=== PATIENT | female | born 1930 ===

== ENCOUNTER 2016-10-02 16:09 | Inpatient (IN) | payer MEDICARE, MEDICAID ==
[2016-10-02] MEDS ORDERED: Sodium Chloride 0.9% 500 ML IV STA (16:51)
--- NOTE | 2016-10-02 16:58 | ED PDOC ---
HPI: Headache Time Seen by Provider: 10/02/16 16:42 Chief Complaint (Nursing): Headache Chief Complaint (Provider): Headache History Per: Patient History/Exam Limitations: no limitations Onset/Duration Of Symptoms: Days Current Symptoms Are (Timing): Still Present Additional Complaint(s): Pt. has headache diffuse since yesterday. Has had similar multiple times in the past. Did not take anything for it. No numbness, tingles, weakness. Has dizziness like room spinning. No nausea, vomit, abd pain, chest pain, dyspnea. Past Medical History Reviewed: Nursing Documentation, Vital Signs Vital Signs: Last Vital Signs Temp 98.2 F 10/02/16 16:13 Pulse 80 10/02/16 16:13 Resp 16 10/02/16 16:13 BP 193/83 H 10/02/16 16:13 Pulse Ox 100 10/02/16 16:13 - Medical History PMH: Alzheimer's Disease, Bronchitis, Dementia, HTN, Hypercholesterolemia, Hypothyroidism Denies: CVA, HIV, Chronic Kidney Disease - Surgical History Surgical History: Appendectomy, Cholecystectomy - Family History Family History: States: Unknown Family Hx - Living Arrangements Living Arrangements: With Family - Social History Current smoker - smoking cessation education provided: No Alcohol: None Drugs: Denies - Home Medications Home Medications: Ambulatory Orders Medication Instructions Recorded Calcium Carbonate/Vitamin D3 1 tab PO BID 10/02/16 [Oysco 500-Vit D3 200 Tablet] Digoxin [Lanoxin] 0.125 mg PO DAILY 10/02/16 Donepezil HCl [Aricept] 5 mg PO DAILY 10/02/16 Levothyroxine [Synthroid] 25 mcg PO DAILY 10/02/16 Lisinopril [Zestril] 10 mg PO BID 10/02/16 Meclizine [Antivert] 12.5 mg PO DAILY PRN 10/02/16 Multivitamin [Multi-Delyn Liquid] 5 ml PO DAILY 10/02/16 Pantoprazole Sodium [Protonix] 20 mg PO DAILY 10/02/16 - Allergies Allergies/Adverse Reactions: Allergies Allergy/AdvReac Type Severity Reaction Status Date / Time No Known Allergies Allergy Verified 04/28/16 09:31 Review of Systems ROS Statement: Except As Marked, All Systems Reviewed And Found Negative Neurological: Positive for: Headache, Dizziness Physical Exam - Reviewed Nursing Documentation Reviewed: Yes Vital Signs Reviewed: Yes - Physical Exam Appears: Positive for: Non-toxic, No Acute Distress Head Exam: Positive for: ATRAUMATIC, NORMAL INSPECTION, NORMOCEPHALIC Skin: Positive for: Normal Color, Warm, DRY Eye Exam: Positive for: EOMI, Normal appearance, PERRL ENT: Positive for: Normal ENT Inspection Neck: Positive for: Normal, Painless ROM Cardiovascular/Chest: Positive for: Regular Rate, Rhythm Respiratory: Positive for: CNT, Normal Breath Sounds Gastrointestinal/Abdominal: Positive for: Normal Exam, Bowel Sounds, Soft. Negative for: Tenderness Back: Positive for: Normal Inspection. Negative for: L CVA Tenderness, R CVA Tenderness Extremity: Positive for: Normal ROM. Negative for: Tenderness, Pedal Edema Neurologic/Psych: Positive for: Alert, affirmative action specialist II-XII, Oriented. Negative for: Motor/Sensory Deficits - Laboratory Results Result Diagrams: 10/02/16 17:59 10/02/16 17:59 Interpretation Of Abn Labs: 94 chloride, na 128 - ECG ECG: Positive for: Interpreted By Me, Viewed By Me ECG Rhythm: Positive for: Normal QRS, Normal ST Segment, Sinus Rhythm O2 Sat by Pulse Oximetry: 100 Pulse Ox Interpretation: Normal - CT Scan/US head Other Rad Studies (CT/US): Read By Radiologist Other Rad Interpretation: no acute - Progress ED Course And Treament: 1859: Stable. Alert. Still have dizziness. Spoke with Dr. Lamar. Will admit tele obs and give further orders when pt. reaches floor. Disposition - Clinical Impression Clinical Impression: Dizziness, Dehydration - Patient ED Disposition Is Patient to be Admitted: Yes Counseled Patient/Family Regarding: Studies Performed, Diagnosis - Disposition Disposition Time: 19:03 Condition: FAIR - Pt Status Changed To: Hospital Disposition Of: Observation - POA Present On Arrival: None
--- NOTE | 2016-10-02 17:28 | CT ---
PROCEDURE: CT HEAD WITHOUT CONTRAST. HISTORY: headache COMPARISON: None available. TECHNIQUE: Axial computed tomography images were obtained through the head/brain without intravenous contrast. Radiation dose: Total exam DLP = 800.12 mGy-cm. This CT exam was performed using one or more of the following dose reduction techniques: Automated exposure control, adjustment of the mA and/or kV according to patient size, and/or use of iterative reconstruction technique. FINDINGS: HEMORRHAGE: No intracranial hemorrhage. BRAIN: Mild to moderate diffuse age-appropriate atrophy. Moderate periventricular white matter lucency with patchy deep and subcortical white matter lucency, consistent with age related microvascular ischemic change. This is unchanged in extent when compared to the prior CT examination. No evidence of acute infarct. VENTRICLES: Unremarkable. No hydrocephalus. CALVARIUM: Unremarkable. PARANASAL SINUSES: Unremarkable as visualized. No significant inflammatory changes. MASTOID AIR CELLS: Unremarkable as visualized. No inflammatory changes. OTHER FINDINGS: 7 mm rounded soft tissue density, likely associated with the left superior palpebrum. This is essentially unchanged from examination of 10/01/2014. IMPRESSION: No intracranial mass, hemorrhage or evidence of acute infarct. Age related atrophy and chronic white matter ischemic change.
[2016-10-02 18:16] LABS: BASO % 0.4 % (0.0-2.0); EOS # 0.1 K/uL (0.0-0.7); HEMOGLOBIN 13.3 g/dL (12.0-16.0); LYMPH # 0.8 K/uL (1.0-4.3); LYMPH % 14.4 % (20.0-40.0); MEAN CORPUSCULAR HEMOGLOBIN 29.9 pg (27.0-31.0); MEAN CORPUSCULAR HGB CONC 32.9 g/dL (33.0-37.0); MEAN PLATELET VOLUME 7.9 fl (7.2-11.7); MONO # 0.4 K/uL (0.0-0.8); MONO % 6.8 % (0.0-10.0); NEUT # 4.1 K/uL (1.8-7.0); NEUT % 77.4 % (50.0-75.0); NRBC % 0.1 % (0.0-0.0); RBC 4.44 Mil/uL (3.80-5.20); RED CELL DISTRIBUTION WIDTH 12.9 % (11.5-14.5); WHITE BLOOD COUNT 5.3 K/uL (4.8-10.8)
[2016-10-02 18:29] LABS: PARTIAL THROMBOPLASTIN TIME 31.9 Seconds (25.6-37.1); PROTHROMBIN TIME 11.3 Seconds (9.8-13.1)
[2016-10-02 18:38] LABS: BLOOD UREA NITROGEN 11 mg/dl (7-17); CALCIUM 9.2 mg/dL (8.4-10.2); GFR AFRICAN-AMERICAN > 60; GFR NON-AFRICAN AMERICAN > 60
[2016-10-02 18:39] LABS: ALB/GLOB RATIO 1.3 (1.0-2.1); ALBUMIN 3.9 g/dL (3.5-5.0); ALT/SGPT 26 U/L (9-52); AST/SGOT 32 U/L (14-36)
[2016-10-02] MEDS: Sodium Chloride 0.9% 1,000 ML IV SCH (22:04)
[2016-10-03] MEDS: Levothyroxine 25 MCG TAB PO SCH (06:16)
[2016-10-03 07:36] LABS: HEMOGLOBIN 12.3 g/dL (12.0-16.0); MEAN CORPUSCULAR HEMOGLOBIN 30.2 pg (27.0-31.0); MEAN CORPUSCULAR HGB CONC 32.8 g/dL (33.0-37.0); RBC 4.09 Mil/uL (3.80-5.20); RED CELL DISTRIBUTION WIDTH 13.1 % (11.5-14.5); WHITE BLOOD COUNT 2.9 K/uL (4.8-10.8)
[2016-10-03] MEDS: Digoxin 125 mcg (0.125 mg) Tab PO SCH (09:00)
[2016-10-03] MEDS: Sodium Chloride 0.9% 1,000 ML IV SCH (09:01)
[2016-10-03] MEDS: Pantoprazole 20 mg EC Tab PO SCH (09:01)
[2016-10-03 09:07] LABS: ALB/GLOB RATIO 1.5 (1.0-2.1); ALBUMIN 3.5 g/dL (3.5-5.0); ALT/SGPT 175 U/L (9-52); AST/SGOT 225 U/L (14-36); BLOOD UREA NITROGEN 10 mg/dl (7-17); CALCIUM 8.6 mg/dL (8.4-10.2); GFR AFRICAN-AMERICAN > 60; GFR NON-AFRICAN AMERICAN > 60
[2016-10-03 09:37] LABS: T3 0.902 nmol/L (1.49-2.60)
--- NOTE | 2016-10-03 09:39 | RAD ---
HISTORY: headache, dizziness COMPARISON: 04/28/2016 FINDINGS: LUNGS: No active pulmonary disease. PLEURA: No significant pleural effusion identified, no pneumothorax apparent. CARDIOVASCULAR: Normal. OSSEOUS STRUCTURES: No significant abnormalities. VISUALIZED UPPER ABDOMEN: Normal. OTHER FINDINGS: None. IMPRESSION: No active disease.
--- NOTE | 2016-10-03 13:02 | CARD ---
APPROVED REPORT EKG Measurement Heart [id number] MD [id number] <Conclusion> Normal sinus rhythm Left axis deviation Possible Anterior infarct, age undetermined Abnormal ECG
--- NOTE | 2016-10-03 14:58 | CARD ---
APPROVED REPORT EXAM: Two-dimensional and M-mode echocardiogram with Doppler and color Doppler. Other Information Quality : GoodRhythm : NSR INDICATION Dizziness and Vertigo Hypertension/HCVD 2D DIMENSIONS IVSd1.17 (0.7-1.1cm)LVDd3.89 (3.9-5.9cm) LVOT Diameter2.08 (1.8-2.4cm)PWd0.99 (0.7-1.1cm) IVSs1.34 (0.8-1.2cm)LVDs2.50 (2.5-4.0cm) FS (%) 35.7 %PWs1.25 (0.8-1.2cm) LVEF (%)55.0 (>50%) M-Mode DIMENSIONS Left Atrium (MM)3.89 (2.5-4.0cm)IVSd0.69 (0.7-1.1cm) Aortic Root3.25 (2.2-3.7cm)LVDd5.02 (4.0-5.6cm) Aortic Cusp Exc.1.79 (1.5-2.0cm)PWd0.86 (0.7-1.1cm) IVSs0.98 cmFS (%) 35 % LVDs3.25 (2.0-3.8cm)PWs1.51 cm Mitral Valve MV E Ubqcyjkd76.3cm/sMV DECEL [id number] A Podejukj77.1cm/s MV ZRS76lnR/A ratio0.7MVA (PHT)2.32cm2 TDI Lateral E' Peak V6.94cm/sMedial E' Peak V4.60cm/sE/Lateral E'8.3 E/Medial E'12.5 Pulmonary Valve PV Peak Piocfvqi49.3cm/s Tricuspid Valve TR Peak Vlrddiic327wz/sRAP SSKCNTVG23bcBrWA Peak Gr.17mmHg [id number] LEFT VENTRICLE The left ventricle is normal size. There is borderline concentric left ventricular hypertrophy. The left ventricular function is normal. The left ventricular ejection fraction is within the normal range. There is normal LV segmental wall motion. Transmitral Doppler flow pattern is Grade I-abnormal relaxation pattern. RIGHT VENTRICLE The right ventricle is normal size. There is normal right ventricular wall thickness. The right ventricular systolic function is normal. ATRIA The left atrium size is normal. The right atrium size is normal. AORTIC VALVE The aortic valve is mildly thickened. There is trace aortic regurgitation. There is no aortic valvular stenosis. MITRAL VALVE The mitral valve is mildly thickened. There is no mitral valve stenosis. There is no mitral valve regurgitation noted. TRICUSPID VALVE The tricuspid valve is normal in structure There is trace tricuspid regurgitation. PULMONIC VALVE The pulmonary valve is normal in structure and function. There is no pulmonic valvular regurgitation. GREAT VESSELS The aortic root is normal in size. The IVC was not visualized. PERICARDIAL EFFUSION The pericardium appears normal. <Conclusion> The left ventricle is normal size. There is borderline concentric left ventricular hypertrophy. The left ventricular function is normal. The left ventricular ejection fraction is within the normal range. There is normal LV segmental wall motion. Transmitral Doppler flow pattern is Grade I-abnormal relaxation pattern.
--- NOTE | 2016-10-03 15:23 | CP.PCM.HP ---
History of Present Illness - History of Present Illness History of Present Illness: An 86 year old female was admitted to a telemetry unit on 10/02/16. She has headache diffuse since 10/01/16. Has had similar multiple times in the past. Did not take anything for it. No numbness, tingles, weakness. She has dizziness like room spinning. There was no nausea, vomit, abd pain, chest pain, or dyspnea. She uses a cane normally because of knee joint arthritic conditions and takes medicines for hypertension and dementia. She has mild shortness of breath on exertion. She lives alone in an apartment. At the ER CAT scan of head was normal, but she was found to have hyponatremia. She was admitted for evaluation and iv hydration. Present on Admission - Present on Admission Any Indicators Present on Admission: No History of DVT/PE: No History of Uncontrolled Diabetes: No Urinary Catheter: No Decubitus Ulcer Present: No Review of Systems - Review of Systems Systems not reviewed;Unavailable: Dementia - Constitutional Constitutional: As Per HPI, Fatigue - Cardiovascular Cardiovascular: Dyspnea on Exertion. absent: Chest Pain, Rapid Heart Rate - Respiratory Respiratory: Dyspnea on Exertion. absent: Cough, Dyspnea - Gastrointestinal Gastrointestinal: absent: Melena, Nausea, Vomiting - Neurological Neurological: Dizziness, Headaches. absent: Abnormal Gait, Abnormal Speech, Convulsions Past Patient History - Past Medical History & Family History Past Medical History?: Yes - Past Social History Smoking Status: Never Smoked - CARDIAC Hx Cardiac Disorders: Yes Hx Hypercholesterolemia: Yes Hx Hypertension: Yes - PULMONARY Hx Respiratory Disorders: Yes Hx Bronchitis: Yes - NEUROLOGICAL Hx Neurological Disorder: Yes Hx Alzheimer's Disease: Yes Hx Dementia: Yes - HEENT Hx HEENT Problems: Yes Hx Cataracts: Yes - RENAL Hx Chronic Kidney Disease: No - ENDOCRINE/METABOLIC Hx Endocrine Disorders: Yes Hx Hypothyroidism: Yes - HEMATOLOGICAL/ONCOLOGICAL Hx Blood Disorders: No Hx AIDS: No Hx Human Immunodeficiency Virus (HIV): No - INTEGUMENTARY Hx Dermatological Problems: No - MUSCULOSKELETAL/RHEUMATOLOGICAL Hx Musculoskeletal Disorders: Yes Hx Falls: No Hx Unsteady Gait: Yes - GASTROINTESTINAL Hx Gastrointestinal Disorders: Yes Hx Gastroesophageal Reflux: Yes - GENITOURINARY/GYNECOLOGICAL Hx Genitourinary Disorders: Yes Hx Incontinence: Yes - PSYCHIATRIC Hx Psychophysiologic Disorder: No Hx Substance Use: No - SURGICAL HISTORY Hx Surgeries: Yes Hx Appendectomy: Yes Hx Cholecystectomy: Yes - ANESTHESIA Hx Anesthesia: Yes Hx Anesthesia Reactions: No Hx Malignant Hyperthermia: No Meds Allergies/Adverse Reactions: Allergies Allergy/AdvReac Type Severity Reaction Status Date / Time No Known Allergies Allergy Verified 04/28/16 09:31 Physical Exam - Constitutional Appears: Non-toxic - Head Exam Head Exam: NORMAL INSPECTION, NORMOCEPHALIC - Neck Exam Neck exam: Positive for: Full Rom, Normal Inspection - Respiratory Exam Respiratory Exam: Clear to Auscultation Bilateral, NORMAL BREATHING PATTERN - Cardiovascular Exam Cardiovascular Exam: REGULAR RHYTHM, +S1, +S2. absent: Systolic Murmur - GI/Abdominal Exam GI & Abdominal Exam: Normal Bowel Sounds, Soft. absent: Tenderness - Extremities Exam Extremities exam: Positive for: normal inspection. Negative for: pedal edema - Back Exam Back exam: NORMAL INSPECTION Results - Vital Signs Recent Vital Signs: Last Vital Signs Temp 98.3 F 10/03/16 12:20 Pulse 55 L 10/03/16 12:20 Resp 18 10/03/16 12:20 BP 152/55 H 10/03/16 12:20 Pulse Ox 96 10/03/16 12:20 - Labs Result Diagrams: 10/03/16 07:00 10/03/16 07:00 Labs: Laboratory Results - last 24 hr 10/03/16 10/03/16 10/03/16 02:00 07:00 07:00 WBC RBC Hgb Hct MCV MCH MCHC RDW Plt Count Sodium 129 L Potassium 4.5 Chloride 99 Carbon Dioxide 22 Anion Gap 13 BUN 10 Creatinine 0.7 Est GFR ( Amer) > 60 Est GFR (Non-Af Amer) > 60 Random Glucose 84 Calcium 8.6 Total Bilirubin 0.8 AST 225 H D ALT 175 H D Alkaline Phosphatase 92 Troponin I 0.0320 Total Protein 5.9 L Albumin 3.5 Globulin 2.4 Albumin/Globulin Ratio 1.5 Vitamin B12 Total T3 0.902 L TSH 3rd Generation 2.73 Digoxin < 0.4 L 10/03/16 10/03/16 10/03/16 07:00 10:40 12:34 WBC 2.9 L RBC 4.09 Hgb 12.3 Hct 37.7 MCV 92.0 MCH 30.2 MCHC 32.8 L RDW 13.1 Plt Count 122 L D Sodium Potassium Chloride Carbon Dioxide Anion Gap BUN Creatinine Est GFR ( Amer) Est GFR (Non-Af Amer) Random Glucose Calcium Total Bilirubin AST ALT Alkaline Phosphatase Troponin I 0.0260 Total Protein Albumin Globulin Albumin/Globulin Ratio Vitamin B12 638 Total T3 TSH 3rd Generation Digoxin Assessment & Plan - Assessment and Plan (Free Text) Assessment: An 88 year old female with history of hypertension, thyroid disorder, dementia and chronic dizziness came with headache and dizziness. CAT scan of head was negative at ER. hyponatremia, Na was 128. Plan: continue iv hydration antivert prn for dizziness work up for carotid doppler and echocardiogram PT evaluation social director eval for home environment - Date & Time Date: 10/02/16 Time: 08:00
--- NOTE | 2016-10-03 15:33 | CP.PCM.PN ---
Subjective - Date & Time of Evaluation Date of Evaluation: 10/03/16 Time of Evaluation: 15:31 - Subjective Subjective: less dizziness less headache no nausea no vomiting Objective - Vital Signs/Intake and Output Vital Signs (last 24 hours): Temp Pulse Resp BP Pulse Ox 98.3 F 55 L 18 152/55 H 96 10/03/16 12:20 10/03/16 12:20 10/03/16 12:20 10/03/16 12:20 10/03/16 12:20 Intake and Output: 10/03/16 10/03/16 06:59 18:59 Intake Total 560 Balance 560 - Medications Medications: Current Medications Acetaminophen (Tylenol 325mg Tab) 650 mg PO Q6 PRN PRN Reason: Headache Digoxin (Lanoxin) 0.125 mg PO DAILY [facility] Last Admin: 10/03/16 09:00 Dose: 0.125 mg Sodium Chloride (Sodium Chloride 0.9%) 1,000 mls @ 80 mls/hr IV .[id number] [facility] Stop: 10/03/16 19:45 Last Admin: 10/03/16 09:01 Dose: 80 mls/hr Levothyroxine Sodium (Synthroid) 25 mcg PO DAILY@0630 [facility] Last Admin: 10/03/16 06:16 Dose: 25 mcg Lisinopril (Zestril) 10 mg PO BID [facility] Last Admin: 10/03/16 09:02 Dose: 10 mg Meclizine HCl (Antivert) 25 mg PO Q12H [facility] Last Admin: 10/03/16 09:00 Dose: 25 mg Pantoprazole Sodium (Protonix Ec Tab) 20 mg PO DAILY [facility] Last Admin: 10/03/16 09:01 Dose: 20 mg - Labs Labs: 10/03/16 07:00 10/03/16 07:00 PT 11.3 Seconds (9.8-13.1) 10/02/16 18:00 INR 1.0 (0.9-1.2) 10/02/16 18:00 APTT 31.9 Seconds (25.6-37.1) 10/02/16 18:00 - Constitutional Appears: Non-toxic - Head Exam Head Exam: NORMAL INSPECTION - Respiratory Exam Respiratory Exam: Clear to Ausculation Bilateral - Cardiovascular Exam Cardiovascular Exam: REGULAR RHYTHM - GI/Abdominal Exam GI & Abdominal Exam: Soft, Normal Bowel Sounds. absent: Tenderness Assessment and Plan - Assessment and Plan (Free Text) Assessment: hyponatremia dementia hypertension dizziness Plan: BP control PT evaluation carotid doppler repeat sodium in AM continue iv fluid DVT prophylaxis
--- NOTE | 2016-10-03 16:17 | US ---
PROCEDURE: Bilateral duplex Doppler carotid arterial ultrasound HISTORY: dizziness COMPARISON: Not available TECHNIQUE: Examination of the right and left carotid artery was performed utilizing a linear array color Doppler transducer FINDINGS: RIGHT CAROTID ARTERY: Intimal thickening in the common carotid artery. Minimal atheromatous plaque in the carotid bulb. Peak systolic velocities: CCA: 85.3 cm/sec ICA: 148.2 cm/sec ICA/CCA peak systolic velocity ratio: 1.7 Antegrade flow in the vertebral artery. LEFT CAROTID ARTERY: Intimal thickening in the common carotid artery. Minimal atheromatous plaque in the carotid bulb. Peak systolic velocities: CCA: 73.6 cm/sec ICA: 96.9 cm/sec ICA/CCA peak systolic velocity ratio: 1.3 Antegrade flow in the vertebral artery IMPRESSION: Less than 50 percent stenosis of the internal carotid artery bilaterally by hemodynamic criteria. Please note that there is elevated peak systolic velocity in the distal right ICA but the ICA/ CCA ratio is within normal limits. Antegrade flow in both vertebral arteries.
[2016-10-04] MEDS ORDERED: Sodium Chloride 0.9% 1,000 ML IV SCH ×2 (02:00→07:44)
[2016-10-04] MEDS: Levothyroxine 25 MCG TAB PO SCH (05:37)
[2016-10-04 06:54] LABS: HEMOGLOBIN 12.3 g/dL (12.0-16.0); MEAN CELL VOLUME 91.9 fl (81.0-99.0); MEAN CORPUSCULAR HEMOGLOBIN 30.3 pg (27.0-31.0); RBC 4.06 Mil/uL (3.80-5.20); RED CELL DISTRIBUTION WIDTH 13.1 % (11.5-14.5); WHITE BLOOD COUNT 3.8 K/uL (4.8-10.8)
--- NOTE | 2016-10-04 07:10 | CP.PCM.PN ---
Subjective - Date & Time of Evaluation Date of Evaluation: 10/04/16 Time of Evaluation: 07:08 - Subjective Subjective: feels fine no dizziness occasional shortness of breath Objective - Vital Signs/Intake and Output Vital Signs (last 24 hours): Temp Pulse Resp BP Pulse Ox 98.4 F 62 18 155/72 H 96 10/04/16 04:37 10/04/16 04:37 10/04/16 04:37 10/04/16 04:37 10/04/16 04:37 - Medications Medications: Current Medications Acetaminophen (Tylenol 325mg Tab) 650 mg PO Q6 PRN PRN Reason: Headache Digoxin (Lanoxin) 0.125 mg PO DAILY [facility] Last Admin: 10/03/16 09:00 Dose: 0.125 mg Sodium Chloride (Sodium Chloride 0.9%) 1,000 mls @ 80 mls/hr IV .[id number] [facility] Stop: 10/05/16 01:59 Last Admin: 10/04/16 02:00 Dose: 80 mls/hr Levothyroxine Sodium (Synthroid) 25 mcg PO DAILY@0630 [facility] Last Admin: 10/04/16 05:37 Dose: Not Given Lisinopril (Zestril) 10 mg PO BID [facility] Last Admin: 10/03/16 17:14 Dose: 10 mg Meclizine HCl (Antivert) 25 mg PO Q12H [facility] Last Admin: 10/03/16 21:57 Dose: 25 mg Pantoprazole Sodium (Protonix Ec Tab) 20 mg PO DAILY [facility] Last Admin: 10/03/16 09:01 Dose: 20 mg - Labs Labs: 10/03/16 07:00 10/03/16 07:00 PT 11.3 Seconds (9.8-13.1) 10/02/16 18:00 INR 1.0 (0.9-1.2) 10/02/16 18:00 APTT 31.9 Seconds (25.6-37.1) 10/02/16 18:00 - Constitutional Appears: Non-toxic - Neck Exam Neck Exam: Normal Inspection - Respiratory Exam Respiratory Exam: Rales (on anterior left upper lung field), NORMAL BREATHING PATTERN - Cardiovascular Exam Cardiovascular Exam: REGULAR RHYTHM. absent: Murmur - GI/Abdominal Exam GI & Abdominal Exam: Soft, Normal Bowel Sounds Assessment and Plan - Assessment and Plan (Free Text) Assessment: an 86 year old female who had dementia, hypertension came for dizziness and headaches hyponatremia probable dehydration carotid doppler < 50% stenosis of ICA Plan: work up for dizziness, echo check labs this morning for follow up sodium
[2016-10-04 07:20] LABS: ALB/GLOB RATIO 1.5 (1.0-2.1); ALBUMIN 3.4 g/dL (3.5-5.0); ALT/SGPT 116 U/L (9-52); AST/SGOT 82 U/L (14-36); BLOOD UREA NITROGEN 12 mg/dl (7-17); CALCIUM 8.8 mg/dL (8.4-10.2); GFR AFRICAN-AMERICAN > 60; GFR NON-AFRICAN AMERICAN > 60
[2016-10-04] MEDS: Digoxin 125 mcg (0.125 mg) Tab PO SCH (09:27)
[2016-10-04] MEDS: Pantoprazole 20 mg EC Tab PO SCH (09:29)
--- NOTE | 2016-10-04 10:26 | US ---
HISTORY: elevated lft COMPARISON: CT abdomen and pelvis performed 02/05/15 TECHNIQUE: Sonographic evaluation of the abdomen. FINDINGS: LIVER: Measures 14.6 cm in sagittal dimension. Heterogeneous echogenic echotexture Echogenic liver may be seen in setting of hepatic parenchymal disease or fatty infiltration. No focal hepatic mass identified. The main portal vein appears patent with normal directional flow. No intrahepatic bile duct dilatation. GALLBLADDER: Cholecystectomy. COMMON BILE DUCT: Measures 10 mm. PANCREAS: Not well visualized. RIGHT KIDNEY: Measures 9.2 x 4.3 x 3.4cm. No obstructing calculus or hydronephrosis identified. Too small to definitively characterize 0.5 x 0.5 x 0.3 cm midpole anechoic focus without vascularity, likely cyst. LEFT KIDNEY: Measures 9.6 x 4.3 x 3.8cm. No obstructing calculus or hydronephrosis identified. SPLEEN: Measures approximately 7.7 cm. AORTA: Limited views appear unremarkable. IVC: Limited views appear unremarkable. OTHER FINDINGS: None. IMPRESSION: Heterogeneous echogenic echotexture Echogenic liver may be seen in setting of hepatic parenchymal disease or fatty infiltration. Dilated common bile duct in the setting of cholecystectomy. 0.5 cm probable right renal cyst.
--- NOTE | 2016-10-04 15:49 | CP.PCM.CON ---
History of Present Illness - History of Present Illness History of Present Illness: Mrs. Mcclain is an 86-year-old woman with a past medical history of dementia, CHF, HTN, vertigo and hypthyroidism who states that she had a headache that started on the top of the head and radiated to the right side and was constant and pressure like. She does not currently have a headache. She also complains of occasional sensation of spinning. She says that she feels that the room spins and she feels dizzy. She does not currently have this sensation, but she gets it sometimes when she sits up, or when she stands up. When she initially presented to the ED, she was hyponatremic and was admitted for management. Neurology was consulted for the dizziness. Review of Systems - Review of Systems All systems: reviewed and no additional remarkable complaints except Past Patient History - Past Medical History & Family History Past Medical History?: Yes - Past Social History Smoking Status: Never Smoked - CARDIAC Hx Cardiac Disorders: Yes Hx Hypercholesterolemia: Yes Hx Hypertension: Yes - PULMONARY Hx Respiratory Disorders: Yes Hx Bronchitis: Yes - NEUROLOGICAL Hx Neurological Disorder: Yes Hx Alzheimer's Disease: Yes Hx Dementia: Yes - HEENT Hx HEENT Problems: Yes Hx Cataracts: Yes - RENAL Hx Chronic Kidney Disease: No - ENDOCRINE/METABOLIC Hx Endocrine Disorders: Yes Hx Hypothyroidism: Yes - HEMATOLOGICAL/ONCOLOGICAL Hx Blood Disorders: No Hx AIDS: No Hx Human Immunodeficiency Virus (HIV): No - INTEGUMENTARY Hx Dermatological Problems: No - MUSCULOSKELETAL/RHEUMATOLOGICAL Hx Musculoskeletal Disorders: Yes Hx Falls: No Hx Unsteady Gait: Yes - GASTROINTESTINAL Hx Gastrointestinal Disorders: Yes Hx Gastroesophageal Reflux: Yes - GENITOURINARY/GYNECOLOGICAL Hx Genitourinary Disorders: Yes Hx Incontinence: Yes - PSYCHIATRIC Hx Psychophysiologic Disorder: No Hx Substance Use: No - SURGICAL HISTORY Hx Surgeries: Yes Hx Appendectomy: Yes Hx Cholecystectomy: Yes - ANESTHESIA Hx Anesthesia: Yes Hx Anesthesia Reactions: No Hx Malignant Hyperthermia: No Meds Allergies/Adverse Reactions: Allergies Allergy/AdvReac Type Severity Reaction Status Date / Time No Known Allergies Allergy Verified 04/28/16 09:31 - Medications Medications: Current Medications Acetaminophen (Tylenol 325mg Tab) 650 mg PO Q6 PRN PRN Reason: Headache Digoxin (Lanoxin) 0.125 mg PO DAILY [facility] Last Admin: 10/04/16 09:27 Dose: 0.125 mg Levothyroxine Sodium (Synthroid) 25 mcg PO DAILY@0630 [facility] Last Admin: 10/04/16 05:37 Dose: Not Given Lisinopril (Zestril) 10 mg PO BID [facility] Last Admin: 10/04/16 09:30 Dose: 10 mg Meclizine HCl (Antivert) 25 mg PO Q12H [facility] Last Admin: 10/04/16 09:26 Dose: 25 mg Pantoprazole Sodium (Protonix Ec Tab) 20 mg PO DAILY [facility] Last Admin: 10/04/16 09:29 Dose: 20 mg Physical Exam - Constitutional Appears: Well - Head Exam Head Exam: ATRAUMATIC, NORMAL INSPECTION, NORMOCEPHALIC - Eye Exam Eye Exam: EOMI, Normal appearance, PERRL - ENT Exam ENT Exam: Mucous Membranes Moist, Normal Exam - Neck Exam Neck exam: Positive for: Normal Inspection - Respiratory Exam Respiratory Exam: Clear to Auscultation Bilateral, NORMAL BREATHING PATTERN - Cardiovascular Exam Cardiovascular Exam: REGULAR RHYTHM, +S1, +S2 - GI/Abdominal Exam GI & Abdominal Exam: Normal Bowel Sounds, Soft. absent: Tenderness - Rectal Exam Rectal Exam: Deferred - Extremities Exam Extremities exam: Positive for: normal inspection - Back Exam Back exam: NORMAL INSPECTION - Neurological Exam Neurological exam: Alert, CN II-XII Intact, Normal Gait, Reflexes Normal Additional comments: Confused about date and time, but knows she's in the hospital and is aware of her condition. She has poor recall and only remembers 1/3 objects. Strength is normal throughout, reflexes are normal, sensation is intact, gait is wide- based and cautious. - Psychiatric Exam Psychiatric exam: Normal Affect, Normal Mood - Skin Skin Exam: Dry, Intact, Normal Color, Warm Results - Vital Signs Recent Vital Signs: Last Vital Signs Temp 97.4 F L 10/04/16 12:00 Pulse 70 10/04/16 12:00 Resp 18 10/04/16 12:00 BP 158/71 H 10/04/16 12:00 Pulse Ox 97 10/04/16 12:00 - Labs Result Diagrams: 10/04/16 05:35 10/04/16 05:35 Labs: Laboratory Results - last 24 hr 10/03/16 10/03/16 10/04/16 00:37 17:00 05:35 WBC RBC Hgb Hct MCV MCH MCHC RDW Plt Count Sodium 135 Potassium 4.2 Chloride 100 Carbon Dioxide 28 Anion Gap 10 BUN 12 Creatinine 0.7 Est GFR ( Amer) > 60 Est GFR (Non-Af Amer) > 60 Random Glucose 86 Serum Osmolality 279 Calcium 8.8 Total Bilirubin 0.3 AST 82 H D ALT 116 H D Alkaline Phosphatase 88 Total Protein 5.7 L Albumin 3.4 L Globulin 2.3 Albumin/Globulin Ratio 1.5 Urine Osmolality 262 L Ur Random Sodium 74 Ur Random Potassium 20.6 10/04/16 05:35 WBC 3.8 L RBC 4.06 Hgb 12.3 Hct 37.3 MCV 91.9 MCH 30.3 MCHC 33.0 RDW 13.1 Plt Count 135 Sodium Potassium Chloride Carbon Dioxide Anion Gap BUN Creatinine Est GFR ( Amer) Est GFR (Non-Af Amer) Random Glucose Serum Osmolality Calcium Total Bilirubin AST ALT Alkaline Phosphatase Total Protein Albumin Globulin Albumin/Globulin Ratio Urine Osmolality Ur Random Sodium Ur Random Potassium Assessment & Plan (1) Dizziness Assessment and Plan: Continue meclizine at current dose and obtain a CTA of the head/neck to evaluate for possible vertebro-basilar insufficiency. Her exam is non-focal and she does not have any nystagmus. Continue hydration and correction of sodium. Continue cardiac work-up. Consider aspirin 81 mg daily for cerebrovascular and cardiovascular protection. Thank you. Status: Chronic Priority: Medium
[2016-10-04] MEDS ORDERED: Iodixanol 320 MG/ML 100 ML BOTTLE IV ONE (17:21)
[2016-10-04] MEDS ORDERED: Sodium Chloride 0.9% 50 ML IV ONE (17:21)
[2016-10-04 19:13] VITALS: RESP 20
[2016-10-04 21:05] LABS: HEPATITIS B SURFACE AG NEGATIVE (NEGATIVE)
[2016-10-04 21:10] LABS: HEPATITIS A IGM NEGATIVE (NEGATIVE)
[2016-10-04 21:11] LABS: HEPATITIS B CORE AB NEGATIVE (NEGATIVE)
[2016-10-04 21:23] LABS: HEPATITIS C ANTIBODY NEGATIVE (NEGATIVE)
[2016-10-05] MEDS: Levothyroxine 25 MCG TAB PO SCH (06:53)
[2016-10-05 08:31] VITALS: O2SAT 97
[2016-10-05] MEDS: Pantoprazole 20 mg EC Tab PO SCH (08:32)
[2016-10-05] MEDS: Digoxin 125 mcg (0.125 mg) Tab PO SCH (08:33)
[2016-10-05 08:34] VITALS: PULSE 64
[2016-10-05 16:53] VITALS: BP 163/55; PULSE 74
--- NOTE | 2016-10-05 16:55 | CP.PCM.PN ---
Subjective - Date & Time of Evaluation Date of Evaluation: 10/05/16 Time of Evaluation: 16:52 - Subjective Subjective: a little headache dizziness knee pain Objective - Vital Signs/Intake and Output Vital Signs (last 24 hours): Temp Pulse Resp BP Pulse Ox 98.4 F 64 20 165/83 H 97 10/05/16 08:30 10/05/16 08:32 10/05/16 08:30 10/05/16 08:32 10/05/16 08:30 - Medications Medications: Current Medications Acetaminophen (Tylenol 325mg Tab) 650 mg PO Q6 PRN PRN Reason: Headache Digoxin (Lanoxin) 0.125 mg PO DAILY [facility] Last Admin: 10/05/16 08:33 Dose: 0.125 mg Levothyroxine Sodium (Synthroid) 25 mcg PO DAILY@0630 [facility] Last Admin: 10/05/16 06:53 Dose: 25 mcg Lisinopril (Zestril) 10 mg PO BID [facility] Last Admin: 10/05/16 08:32 Dose: 10 mg Meclizine HCl (Antivert) 25 mg PO Q12H [facility] Last Admin: 10/05/16 08:32 Dose: 25 mg Pantoprazole Sodium (Protonix Ec Tab) 20 mg PO DAILY [facility] Last Admin: 10/05/16 08:32 Dose: 20 mg - Labs Labs: 10/04/16 05:35 10/04/16 05:35 PT 11.3 Seconds (9.8-13.1) 10/02/16 18:00 INR 1.0 (0.9-1.2) 10/02/16 18:00 APTT 31.9 Seconds (25.6-37.1) 10/02/16 18:00 - Constitutional Appears: Non-toxic - Neck Exam Neck Exam: Full ROM - Respiratory Exam Respiratory Exam: NORMAL BREATHING PATTERN - Cardiovascular Exam Cardiovascular Exam: REGULAR RHYTHM. absent: Murmur Assessment and Plan - Assessment and Plan (Free Text) Assessment: 86 year old female with history of dementia, hypothyroidism, came for dizziness 2D echo was normal. CT angio neck showed no hemodynamically significant stenosis Plan: discharge patient home Neurology cleared for discharge if CT neck was normal. It showed no evidence of hemodynamically significant stenosis. follow up with PCP in 3 days.
[2016-10-05 16:56] VITALS: TEMP 98.3
--- NOTE | 2016-10-07 10:53 | CT ---
PROCEDURE: CT Angiography of the Brain and neck. HISTORY: possible VBI COMPARISON: Carotid ultrasound examination 10/03/2016. TECHNIQUE: CT angiography of the intracranial arteries was performed as well as those through the neck. Coronal and sagittal maximum intensity projection reformated images were generated. This CT exam was performed using one or more of the following dose reduction techniques: Automated exposure control, adjustment of the mA and/or kV according to patient size, and/or use of iterative reconstruction technique. FINDINGS: INTERNAL CEREBRAL ARTERIES: Unremarkable. The skull base, petrous, cavernous and supraclinoid segments are bilaterally widely patient. ANTERIOR CEREBRAL ARTERIES: Unremarkable. A1 and A2 segments are widely patent. Smaller distal branches unremarkable, as visualized. MIDDLE CEREBRAL ARTERIES: Unremarkable. M1 and M2 segments are widely patent. Perisylvian branches grossly symmetric. POSTERIOR CIRCULATION: Basilar Artery: Unremarkable. Distal Vertebral Arteries: Unremarkable. Posterior Cerebral Arteries: Unremarkable. Posterior Inferior Cerebellar Arteries: Unremarkable. ANEURYSM/ VASCULAR MALFORMATIONS: None. OTHER FINDINGS: Evaluation of the cervical carotid artery systems reveals widely patent bilateral common carotid arteries although [id number] atherosclerotic plaque is identified at the left carotid bulb. They appear widely patent at their origins. No significant stenosis is appreciated at the bilateral internal carotid arteries as well as the external carotid arteries. Trace plaque is identified in the proximal cervical right internal carotid artery as well as at the origin of the left external carotid artery. The bilateral internal carotid arteries are rather ectatic yet appear patent through their bifurcations nevertheless. Limited atherosclerotic plaque is identified at the origin of the right vertebral artery with none at the left. No definitive significant stenosis appreciated at either vertebral artery which are patent to their junction with the basilar artery. The visualized bilateral subclavian arteries appear widely patent. Incidental limited C3-4 and C4-5 spondylolistheses are identified which are likely degenerative. IMPRESSION: Unremarkable CT Angiography of the Brain. Limited atherosclerosis appreciated the left carotid bulb without significant stenosis involving the left common or internal carotid arteries nevertheless. The right common and internal carotid arteries appear widely patent. Incidental limited spondylolistheses spinal lucencies at C3-4 and C4-5 are identified.
== END 2016-10-05 19:30 | disposition home health service (06) | DRG 641 ==
LOC: H.ER 16:09 → H.ERHOLD 19:01 → OBSVTOIN 19:33 → H.TEL 10-03 00:03
PROVIDERS: ADMIT Internal Medicine; ATTEND Internal Medicine
DX: E87.1 Hypo-osmolality and hyponatremia (principal); E86.0 Dehydration; G30.9 Alzheimer's disease, unspecified; F02.80 Dementia in other diseases classified elsewhere, unspecified severity, without behavioral disturbance, psychotic disturbance, mood disturbance, and anxiety; E03.9 Hypothyroidism, unspecified; I10 Essential (primary) hypertension; R51 Headache; M17.0 Bilateral primary osteoarthritis of knee; E78.00 Pure hypercholesterolemia, unspecified; K21.9 Gastro-esophageal reflux disease without esophagitis; Z90.49 Acquired absence of other specified parts of digestive tract

== ENCOUNTER 2017-05-24 17:38 | Emergency (ER) | payer MEDICARE, MEDICAID ==
[2017-05-24 17:39] VITALS: PULSE 64; BMI 21.9
[2017-05-24 17:50] VITALS: O2SAT 98
[2017-05-24] MEDS ORDERED: Sodium Chloride 0.9% 1,000 ML IV STA (18:04)
--- NOTE | 2017-05-24 18:14 | ED PDOC ---
HPI: Headache Time Seen by Provider: 05/24/17 17:56 Chief Complaint (Nursing): Headache Chief Complaint (Provider): Headache History Per: Patient History/Exam Limitations: no limitations Onset/Duration Of Symptoms: Days (x 1 month) Current Symptoms Are (Timing): Still Present Additional Complaint(s): 86 year old female, with history of hypothyroidism, cardiac arrhythmia, hypertension and Alzheimer's,presents to the ED complaining of headache, with associated nausea, onset 1 month ago. Patient reports headache is intermittent in pain, where some days are worse than others. Currently her headache is worse than usual and she reports being in a lot of pain. She was given Tylenol 500 mg about 4 hours ago with no relief. Patient denies vomiting, shortness of breath, fever and chills. PMD: Dr. Shaik Tami DELCID Past Medical History Reviewed: Historical Data, Nursing Documentation, Vital Signs Vital Signs: Last Vital Signs Temp 97.3 F L 05/24/17 17:46 Pulse 86 05/24/17 17:46 Resp 20 05/24/17 17:46 BP 186/87 H 05/24/17 17:46 Pulse Ox 98 05/24/17 17:46 - Medical History PMH: Alzheimer's Disease, Arthritis, Bronchitis, Dementia, HTN, Hypercholesterolemia, Hypothyroidism, Pneumonia Denies: CVA, Depression, HIV, Chronic Kidney Disease - Surgical History Surgical History: Appendectomy, Cholecystectomy, (x3) - Family History Family History: States: Unknown Family Hx - Living Arrangements Living Arrangements: With Family - Social History Current smoker - smoking cessation education provided: No Alcohol: None Drugs: Denies - Home Medications Home Medications: Ambulatory Orders Medication Instructions Recorded Donepezil [Aricept] 5 mg PO DAILY 06/15/12 Hctz12.5mg Daily 06/15/12 Levothyroxine Sodium [Synthroid] 0.025 mg PO DAILY 06/15/12 Lisinopril 10 mg PO DAILY 06/15/12 Ranitidine HCl [Zantac 150] 150 mg PO DAILY 06/15/12 Vit D2 1.2mg 06/15/12 Calcium Carbonate/Vitamin D3 1 tab PO BID 10/02/16 [Oysco 500-Vit D3 200 Tablet] Digoxin 0.125 mg PO DAILY 10/02/16 Donepezil HCl [Aricept] 5 mg PO DAILY 10/02/16 Levothyroxine [Synthroid] 25 mcg PO DAILY 10/02/16 Lisinopril [Zestril] 10 mg PO BID 10/02/16 Meclizine [Antivert] 12.5 mg PO DAILY PRN 10/02/16 Multivitamin [Multi-Delyn Liquid] 5 ml PO DAILY 10/02/16 Pantoprazole Sodium [Protonix] 20 mg PO DAILY 10/02/16 Acetaminophen [Tylenol 325mg tab] 650 mg PO Q6 PRN tab 10/05/16 Digoxin 0.125 mg PO DAILY tab 10/05/16 Levothyroxine [Synthroid] 25 mcg PO DAILY@0630 tab 10/05/16 Lisinopril [Zestril] 10 mg PO BID tab 10/05/16 Meclizine [Meclizine*] 12.5 mg PO Q12H #30 tab 10/05/16 Pantoprazole [Protonix EC Tab] 20 mg PO DAILY ect 10/05/16 Naproxen 375 mg PO BID PRN #20 tablet 05/24/17 Sulfamethoxazole/Trimethoprim 1 tab PO BID #14 tab 05/24/17 [Bactrim DS 800 mg-160 mg] - Allergies Allergies/Adverse Reactions: Allergies Allergy/AdvReac Type Severity Reaction Status Date / Time No Known Allergies Allergy Verified 05/24/17 17:45 Review of Systems ROS Statement: Except As Marked, All Systems Reviewed And Found Negative Constitutional: Negative for: Fever, Chills Respiratory: Negative for: Shortness of Breath Gastrointestinal: Positive for: Nausea. Negative for: Vomiting Neurological: Positive for: Headache Physical Exam - Reviewed Nursing Documentation Reviewed: Yes Vital Signs Reviewed: Yes - Physical Exam Appears: Positive for: Non-toxic, No Acute Distress Head Exam: Positive for: ATRAUMATIC, NORMOCEPHALIC Skin: Positive for: Normal Color, Warm, Dry Eye Exam: Positive for: EOMI, Normal appearance, PERRL Neck: Positive for: Normal, Painless ROM, Supple Cardiovascular/Chest: Positive for: Regular Rate, Rhythm. Negative for: Murmur Respiratory: Positive for: Normal Breath Sounds. Negative for: Respiratory Distress Gastrointestinal/Abdominal: Positive for: Normal Exam, Soft. Negative for: Tenderness Back: Positive for: Normal Inspection. Negative for: L CVA Tenderness, R CVA Tenderness Extremity: Positive for: Normal ROM. Negative for: Deformity Neurologic/Psych: Positive for: Alert (awake and elderly), Oriented, Other ( complains of headache). Negative for: Motor/Sensory Deficits - Laboratory Results Result Diagrams: 05/24/17 18:31 05/24/17 18:31 Urine dip results: Positive for: Leukocyte Esterase, Nitrate - ECG O2 Sat by Pulse Oximetry: 98 (RA) Pulse Ox Interpretation: Normal Medical Decision Making Medical Decision Making: Time: 18:03 Impression: headache, poorly controlled hypertension Initial Plan: --Head CT --EKG --BMP --TSH --Urine dip --CBC with differentials --Erythrocyte Sedimentation Rate --Normal saline IV 100 mls/hr --Toradol 30 mg IVP --Zofran Inj 4 mg IVP Scribe Attestation: Documented by Mayela Contreras, acting as a scribe for Reyna Becker MD. Provider Scribe Attestation: All medical record entries made by the Scribe were at my direction and personally dictated by me. I have reviewed the chart and agree that the record accurately reflects my personal performance of the history, physical exam, medical decision making, and the department course for this patient. I have also personally directed, reviewed, and agree with the discharge instructions and disposition. Disposition - Clinical Impression Clinical Impression: Headache, UTI (urinary tract infection) - Patient ED Disposition Is Patient to be Admitted: No Doctor Will See Patient In The: Office Counseled Patient/Family Regarding: Diagnosis, Need For Followup, Rx Given - Disposition Referrals: Shaik Garrett MD [Medical Doctor] - Disposition: Routine/Home Disposition Time: 21:25 Condition: STABLE Prescriptions: Naproxen 375 mg PO BID PRN #20 tablet PRN Reason: Pain, Moderate (4-7) Sulfamethoxazole/Trimethoprim [Bactrim DS 800 mg-160 mg] 1 tab PO BID #14 tab Instructions: Urinary Tract Infections in Adults Forms: [facility] (Greenlandic) Print Language: TAMAZIGHT - POA Present On Arrival: Jutsine
[2017-05-24 18:36] LABS: EOS # 0.1 K/uL (0.0-0.7); EOS % 2.3 % (0.0-4.0); HEMOGLOBIN 12.4 g/dL (12.0-16.0); LYMPH # 0.7 K/uL (1.0-4.3); LYMPH % 16.1 % (20.0-40.0); MEAN CELL VOLUME 93.6 fl (81.0-99.0); MEAN CORPUSCULAR HGB CONC 33.1 g/dL (33.0-37.0); MONO # 0.5 K/uL (0.0-0.8); MONO % 12.4 % (0.0-10.0); NEUT # 2.9 K/uL (1.8-7.0); NEUT % 68.2 % (50.0-75.0); NRBC % 0.1 % (0.0-0.0); RBC 4.01 Mil/uL (3.80-5.20); RED CELL DISTRIBUTION WIDTH 13.1 % (11.5-14.5); WHITE BLOOD COUNT 4.3 K/uL (4.8-10.8)
[2017-05-24 18:48] LABS: CALCIUM 9.2 mg/dL (8.4-10.2); GFR AFRICAN-AMERICAN > 60; GFR NON-AFRICAN AMERICAN > 60
[2017-05-24 19:28] VITALS: RESP 16
[2017-05-24 19:30] LABS: BLOOD UREA NITROGEN 18 mg/dl (7-17)
--- NOTE | 2017-05-24 21:18 | CT ---
EXAM: CT Head Without Intravenous Contrast CLINICAL HISTORY: 86 years old, female; Pain; Headache TECHNIQUE: Axial computed tomography images of the head/brain without intravenous contrast. All CT scans at this facility use one or more dose reduction techniques, viz.: automated exposure control; ma/kV adjustment per patient size (including targeted exams where dose is matched to indication; i.e. head); or iterative reconstruction technique. Coronal and sagittal reformatted images were created and reviewed. COMPARISON: CT HEAD 10/02/2016 FINDINGS: Brain: Moderate bilateral white matter hypoattenuation most consistent with chronic ischemic small vessel changes. Atrophy. No hemorrhage. No edema. Vascular calcification. Ventricles: No hydrocephalus. Bones: Skull is intact. Sinuses: No acute sinusitis. Mastoid air cells: Partial opacification of right mastoid air cells, similar appearance to prior study. Soft tissue: 7 mm rounded soft tissue density, likely associated with the left superior palpebrum. This is essentially unchanged from examination of 10/01/2014. IMPRESSION: No CT evidence of acute intracranial abnormality. Chronic changes as above.
[2017-05-24 21:39] LABS: SQUAMOUS EPITHIAL < 1 /hpf (0-5); URINE BACTERIA RARE (<OCC); URINE BILIRUBIN NEGATIVE (NEGATIVE); URINE BLOOD NEGATIVE (NEGATIVE); URINE CLARITY CLOUDY (Clear); URINE COLOR YELLOW (YELLOW); URINE GLUCOSE (UA) NEG (Normal); URINE LEUKOCYTE ESTERASE LARGE Leu/uL (Negative); URINE PROTEIN NEGATIVE (NEGATIVE); URINE UROBILINOGEN 0.2-1.0 mg/dL (0.2-1.0)
[2017-05-24 21:50] VITALS: BP 152/71; PULSE 90; TEMP 98.1
--- NOTE | 2017-05-25 10:37 | CARD ---
APPROVED REPORT EKG Measurement Heart [id number] <Conclusion> Normal sinus rhythm Left axis deviation Incomplete left bundle branch block Left ventricular hypertrophy with repolarization abnormality Abnormal ECG
== END 2017-05-24 21:55 | disposition home or self-care (01) ==
LOC: H.ER 17:38
DX: R51 Headache (principal); N39.0 Urinary tract infection, site not specified; G30.9 Alzheimer's disease, unspecified; F02.80 Dementia in other diseases classified elsewhere, unspecified severity, without behavioral disturbance, psychotic disturbance, mood disturbance, and anxiety; E03.9 Hypothyroidism, unspecified; E78.00 Pure hypercholesterolemia, unspecified; I10 Essential (primary) hypertension
CPT/HCPCS: 70450; 80048; 81003; 84443; 85025; 85651; 87086; 87181; 93005; 96374; 96375; 99285; J1885; J2405; J7040

== ENCOUNTER 2017-05-30 18:35 | Inpatient (IN) | payer MEDICARE, MEDICAID ==
[2017-05-30 18:35] VITALS: BMI 21.9
--- NOTE | 2017-05-30 19:01 | ED PDOC ---
HPI: Abdomen Time Seen by Provider: 05/30/17 18:52 Chief Complaint (Nursing): GI Problem Chief Complaint (Provider): Abdominal Pain History Per: Patient Onset/Duration Of Symptoms: Days (3-4) Current Symptoms Are (Timing): Still Present Location Of Pain/Discomfort: Diffuse Associated Symptoms: Nausea. denies: Vomiting, Diarrhea Additional History Per: Patient Additional Complaint(s): 86 y/o female here for evaluation via EMS for constant abdominal pain for the last 3-4 days and is associated with nausea and nonbloody vomiting, without chest pain, or diarrhea. She takes Pantoprazole, denies trying anything for pain at home. She also complains of headache for months. No new headache today. Not worst in her life. Less then her usual pain in head. No neck pain , numbness, tingles, weakness, dizziness. No dysuria. No dyspnea. Patient was here recently and diagnosed with UTI. Dr. Garrett, PMD Past Medical History Reviewed: Nursing Documentation, Vital Signs Vital Signs: Last Vital Signs Temp 98.7 F 05/30/17 18:49 Pulse 78 05/30/17 18:49 Resp 18 05/30/17 18:49 BP 183/71 H 05/30/17 18:49 Pulse Ox 99 05/30/17 23:53 - Medical History PMH: Alzheimer's Disease, Arthritis, Bronchitis, Dementia, HTN, Hypercholesterolemia, Hypothyroidism, Pneumonia Denies: CVA, Depression, HIV, Chronic Kidney Disease - Surgical History Surgical History: Appendectomy, Cholecystectomy, (x3) - Family History Family History: States: Unknown Family Hx - Social History Current smoker - smoking cessation education provided: No Alcohol: None Drugs: Denies - Home Medications Home Medications: Ambulatory Orders Medication Instructions Recorded Donepezil [Aricept] 5 mg PO DAILY 06/15/12 Hctz12.5mg Daily 06/15/12 Levothyroxine Sodium [Synthroid] 0.025 mg PO DAILY 06/15/12 Lisinopril 10 mg PO DAILY 06/15/12 Ranitidine HCl [Zantac 150] 150 mg PO DAILY 06/15/12 Vit D2 1.2mg 06/15/12 Calcium Carbonate/Vitamin D3 1 tab PO BID 10/02/16 [Oysco 500-Vit D3 200 Tablet] Digoxin 0.125 mg PO DAILY 10/02/16 Donepezil HCl [Aricept] 5 mg PO DAILY 10/02/16 Levothyroxine [Synthroid] 25 mcg PO DAILY 10/02/16 Lisinopril [Zestril] 10 mg PO BID 10/02/16 Meclizine [Antivert] 12.5 mg PO DAILY PRN 10/02/16 Multivitamin [Multi-Delyn Liquid] 5 ml PO DAILY 10/02/16 Pantoprazole Sodium [Protonix] 20 mg PO DAILY 10/02/16 Acetaminophen [Tylenol 325mg tab] 650 mg PO Q6 PRN tab 10/05/16 Digoxin 0.125 mg PO DAILY tab 10/05/16 Levothyroxine [Synthroid] 25 mcg PO DAILY@0630 tab 10/05/16 Lisinopril [Zestril] 10 mg PO BID tab 10/05/16 Meclizine [Meclizine*] 12.5 mg PO Q12H #30 tab 10/05/16 Pantoprazole [Protonix EC Tab] 20 mg PO DAILY ect 10/05/16 Naproxen 375 mg PO BID PRN #20 tablet 05/24/17 Sulfamethoxazole/Trimethoprim 1 tab PO BID #14 tab 05/24/17 [Bactrim DS 800 mg-160 mg] - Allergies Allergies/Adverse Reactions: Allergies Allergy/AdvReac Type Severity Reaction Status Date / Time No Known Allergies Allergy Verified 05/30/17 18:42 Review of Systems ROS Statement: Except As Marked, All Systems Reviewed And Found Negative Cardiovascular: Negative for: Chest Pain Gastrointestinal: Positive for: Nausea, Abdominal Pain. Negative for: Vomiting , Diarrhea Neurological: Positive for: Headache Physical Exam - Reviewed Nursing Documentation Reviewed: Yes Vital Signs Reviewed: Yes - Physical Exam Appears: Positive for: No Acute Distress Head Exam: Positive for: ATRAUMATIC, NORMAL INSPECTION, NORMOCEPHALIC Skin: Positive for: Normal Color, Dry Eye Exam: Positive for: Normal appearance, EOMI ENT: Positive for: Normal ENT Inspection Neck: Positive for: Painless ROM Cardiovascular/Chest: Positive for: Regular Rate, Rhythm Respiratory: Positive for: Normal Breath Sounds Gastrointestinal/Abdominal: Positive for: Soft, Tenderness (diffuse). Negative for: Distended, Guarding, Rebound Back: Positive for: Normal Inspection. Negative for: L CVA Tenderness, R CVA Tenderness Extremity: Positive for: Normal ROM. Negative for: Tenderness, Pedal Edema, Swelling Neurologic/Psych: Positive for: Alert - Laboratory Results Result Diagrams: 05/30/17 19:51 05/30/17 19:51 Interpretation Of Abn Labs: 5.2 k, 124 na, 86 chloride - ECG ECG: Positive for: Interpreted By Me, Viewed By Me ECG Rhythm: Positive for: Nonspecific Changes (same as old) O2 Sat by Pulse Oximetry: 99 (RA) Pulse Ox Interpretation: Normal - Progress ED Course And Treament: 1211: Stable. AAOx3. Pain controlled. Will admit for fluids and electrolyte improvement. Spoke with Dr. Rubio who will admit. Medical Decision Making Medical Decision Making: Impression: Abdominal pain, nausea, and vomiting Plan: - Scribe Attestation: Documented by Marizol Odonnell, acting as a scribe for Dr. Suarez Provider Scribe Attestation: All medical record entries made by the Scribe were at my direction and personally dictated by me. I have reviewed the chart and agree that the record accurately reflects my personal performance of the history, physical exam, medical decision making, and the department course for this patient. I have also personally directed, reviewed, and agree with the discharge instructions and disposition. Disposition - Clinical Impression Clinical Impression: Abdominal pain, Vomiting, Hyponatremia - Patient ED Disposition Is Patient to be Admitted: Yes Counseled Patient/Family Regarding: Studies Performed, Diagnosis - Disposition Disposition Time: 00:13 Condition: FAIR - Pt Status Changed To: Hospital Disposition Of: Observation - POA Present On Arrival: None
[2017-05-30] MEDS ORDERED: Sodium Chloride 0.9% 500 ML IV STA (19:08)
[2017-05-30] MEDS ORDERED: Iohexol 240 (50 ml) PO ONE (19:08)
[2017-05-30 20:03] LABS: BASO % 0.3 % (0.0-2.0); EOS # 0.1 K/uL (0.0-0.7); EOS % 1.8 % (0.0-4.0); HEMOGLOBIN 12.4 g/dL (12.0-16.0); LYMPH # 0.5 K/uL (1.0-4.3); LYMPH % 13.9 % (20.0-40.0); MEAN CORPUSCULAR HEMOGLOBIN 31.5 pg (27.0-31.0); MEAN CORPUSCULAR HGB CONC 34.3 g/dL (33.0-37.0); MEAN PLATELET VOLUME 7.8 fl (7.2-11.7); MONO # 0.4 K/uL (0.0-0.8); MONO % 10.1 % (0.0-10.0); NEUT # 2.8 K/uL (1.8-7.0); NEUT % 73.9 % (50.0-75.0); NRBC % 0.2 % (0.0-0.0); RBC 3.94 Mil/uL (3.80-5.20); RED CELL DISTRIBUTION WIDTH 12.9 % (11.5-14.5); WHITE BLOOD COUNT 3.8 K/uL (4.8-10.8)
[2017-05-30 20:14] LABS: PROTHROMBIN TIME 10.8 Seconds (9.8-13.1)
[2017-05-30 20:15] LABS: PARTIAL THROMBOPLASTIN TIME 29.1 Seconds (25.6-37.1)
[2017-05-30 20:24] LABS: ALB/GLOB RATIO 1.3 (1.0-2.1); ALBUMIN 3.9 g/dL (3.5-5.0); ALT/SGPT 37 U/L (9-52); AST/SGOT 30 U/L (14-36); BLOOD UREA NITROGEN 14 mg/dl (7-17); CALCIUM 8.9 mg/dL (8.4-10.2); GFR AFRICAN-AMERICAN > 60; GFR NON-AFRICAN AMERICAN > 60; LIPASE 82 U/L (23-300)
[2017-05-30] MEDS ORDERED: Iohexol 240 (50 ml) ONE (20:27)
[2017-05-30] MEDS ORDERED: Sodium Chloride 0.9% 100 ML ONE (23:15)
[2017-05-30] MEDS ORDERED: Iohexol 300 100 ML IJ ONE (23:15)
[2017-05-31] MEDS ORDERED: Sodium Chloride 0.9% 1,000 ML IV STA (00:05)
[2017-05-31] MEDS ORDERED: Sod Polystyrene Sulf 15 gm/60 ml Susp PO STA (00:05)
--- NOTE | 2017-05-31 00:13 | CT ---
EXAM: CT Abdomen and Pelvis With Intravenous Contrast CLINICAL HISTORY: 86 years old, female; Pain; Abdominal pain; Generalized; Prior surgery; Surgery date: 6+ months; Surgery type: , appendix removal; Additional info: Abd pain TECHNIQUE: Axial computed tomography images of the abdomen and pelvis with intravenous contrast. All CT scans at this facility use one or more dose reduction techniques, viz.: automated exposure control; ma/kV adjustment per patient size (including targeted exams where dose is matched to indication; i.e. head); or iterative reconstruction technique. Coronal and sagittal reformatted images were created and reviewed. CONTRAST: 95 mL of OMNI 300 administered intravenously. COMPARISON: CT - ABD PELVIS PO IV CONTRAST 2015-02-05 23:54 FINDINGS: Limitations: Motion artifact - mild. Lower thorax: Mild cardiomegaly. Minimal atelectasis/scarring. Small hiatal hernia. Contrast within esophagus may represent reflux. ABDOMEN: Liver: Mild intrahepatic ductal dilatation, stable. Gallbladder and bile ducts: Gallbladder not visualized. Dilated common bile duct, stable. Pancreas: No mass. Mildly prominent pancreatic duct, stable. Spleen: No splenomegaly. Adrenals: No mass. Kidneys and ureters: Few too small to characterize lesions within kidneys. No hydronephrosis. Stomach and bowel: Scattered diverticula within colon. No associated inflammatory stranding. Segmental areas of probable underdistention of LEFT colon. No definite mural thickening. No obstruction. Appendix: Appendectomy. PELVIS: Bladder: Incomplete distention, limiting evaluation. Borderline bladder wall thickening, 4-5 mm. Bladder diverticulum. Reproductive: 3.1 x 3.7 x 4.0 cm hypodense lesion within LEFT adnexal region, increase in size and appearance examination. ABDOMEN and PELVIS: Intraperitoneal space: No significant fluid collection. No free air. Bones/joints: Mild degenerative changes of spine. Mild compression deformity L4 vertebral body, chronic. Mild compression deformity L1 vertebral body, subacute to chronic. Soft tissues: Tiny paraumbilical hernia containing fat. Vasculature: Eghc-do-rxnnhuco atherosclerotic disease. No aneurysm. Lymph nodes: No pathologically enlarged lymph nodes. IMPRESSION: 1. Diverticulosis without definite CT evidence of diverticulitis. 2. Mild cystitis vs underdistention. Correlate with urinalysis. 3. Left adnexal lesion, indeterminate. Recommend ultrasound. 4. Incidental/non-acute findings are described above.
--- NOTE | 2017-05-31 00:15 | ED PDOC ---
- Laboratory Results Result Diagrams: 05/30/17 19:51 05/30/17 19:51 - ECG O2 Sat by Pulse Oximetry: 99 (RA) Medical Decision Making Medical Decision Making: Time: 00:00 Patient signed out to provider by Dr. Manas Suarez pending CT and reevaluation. Scribe Attestation: Documented by Itz Campos acting as a scribe for Rene Yang MD. Scribe Attestation: All medical record entries made by the Scribe were at my direction and personally dictated by me. I have reviewed the chart and agree that the record accurately reflects my personal performance of the history, physical exam, medical decision making, and the department course for this patient. I have also personally directed, reviewed, and agree with the discharge instructions and disposition. Disposition - Clinical Impression Clinical Impression: Abdominal pain, Vomiting, Hyponatremia - Disposition Condition: FAIR
[2017-05-31] MEDS ORDERED: Sod Polystyrene Sulf 15 gm/60 ml Susp ONE (00:53)
[2017-05-31] MEDS: Digoxin 125 mcg (0.125 mg) Tab PO SCH (17:04)
[2017-05-31] MEDS: Sodium Chloride 0.9% 1,000 ML IV SCH (22:30)
[2017-06-01] MEDS: Sodium Chloride 0.9% 1,000 ML IV SCH (06:50)
[2017-06-01 07:15] LABS: HEMOGLOBIN 11.5 g/dL (12.0-16.0); MEAN CELL VOLUME 92.9 fl (81.0-99.0); MEAN CORPUSCULAR HEMOGLOBIN 31.7 pg (27.0-31.0); MEAN CORPUSCULAR HGB CONC 34.1 g/dL (33.0-37.0); RBC 3.63 Mil/uL (3.80-5.20); RED CELL DISTRIBUTION WIDTH 13.1 % (11.5-14.5); WHITE BLOOD COUNT 3.9 K/uL (4.8-10.8)
[2017-06-01 07:38] LABS: ALB/GLOB RATIO 1.3 (1.0-2.1); ALBUMIN 3.1 g/dL (3.5-5.0); ALT/SGPT 36 U/L (9-52); AST/SGOT 31 U/L (14-36); BLOOD UREA NITROGEN 9 mg/dl (7-17); GFR AFRICAN-AMERICAN > 60; GFR NON-AFRICAN AMERICAN > 60
[2017-06-01 07:47] VITALS: O2SAT 96
[2017-06-01] MEDS: Digoxin 125 mcg (0.125 mg) Tab PO SCH (08:49)
--- NOTE | 2017-06-01 22:26 | CP.PCM.HP ---
History of Present Illness - History of Present Illness History of Present Illness: This is an 86 y/o female admitted for constant abdominal pain for the last 3-4 days. The patient was found to have electrolyte imbalance with NA of 124 and K of 5.2 She denies diarrhea, chest pain or any other symptoms. Ct of chest in ER showered she had diverticulosis without diverticulitis and mild cystitis which she has been on antibiotics for at home. Present on Admission - Present on Admission Any Indicators Present on Admission: No History of DVT/PE: No Urinary Catheter: No Decubitus Ulcer Present: No Review of Systems - Constitutional Constitutional: As Per HPI - Gastrointestinal Gastrointestinal: Nausea Past Patient History - Tetanus Immunizations Tetanus Immunization: Up to Date, Unknown - Past Medical History & Family History Past Medical History?: Yes - Past Social History Smoking Status: Former Smoker - CARDIAC Hx Cardiac Disorders: Yes (HTN, hypercholesterolemia) - PULMONARY Hx Respiratory Disorders: Yes (bronchitis, pneumonia) - NEUROLOGICAL Hx Neurological Disorder: Yes (dementia) - HEENT Hx HEENT Problems: Yes (deafhess) - RENAL Hx Chronic Kidney Disease: No - ENDOCRINE/METABOLIC Hx Endocrine Disorders: Yes (hypothyroidism) - HEMATOLOGICAL/ONCOLOGICAL Hx Human Immunodeficiency Virus (HIV): No - INTEGUMENTARY Hx Dermatological Problems: No - MUSCULOSKELETAL/RHEUMATOLOGICAL Hx Falls: No - GASTROINTESTINAL Hx Gastrointestinal Disorders: Yes Hx Gastroesophageal Reflux: Yes - GENITOURINARY/GYNECOLOGICAL Hx Genitourinary Disorders: Yes Hx Incontinence: Yes - PSYCHIATRIC Hx Substance Use: No - SURGICAL HISTORY Hx Appendectomy: Yes Hx Section: Yes Hx Cholecystectomy: Yes - ANESTHESIA Hx Anesthesia: Yes Hx Anesthesia Reactions: No Hx Malignant Hyperthermia: No Meds Allergies/Adverse Reactions: Allergies Allergy/AdvReac Type Severity Reaction Status Date / Time No Known Allergies Allergy Verified 05/30/17 18:42 Physical Exam - Constitutional Appears: Well - Head Exam Head Exam: ATRAUMATIC, NORMAL INSPECTION, NORMOCEPHALIC - Eye Exam Eye Exam: Normal appearance Pupil Exam: NORMAL ACCOMODATION, PERRL - ENT Exam ENT Exam: Mucous Membranes Moist - Neck Exam Neck exam: Positive for: Normal Inspection - Respiratory Exam Respiratory Exam: Clear to Auscultation Bilateral, NORMAL BREATHING PATTERN - Cardiovascular Exam Cardiovascular Exam: REGULAR RHYTHM - GI/Abdominal Exam GI & Abdominal Exam: Normal Bowel Sounds, Soft - Rectal Exam Rectal Exam: Deferred Results - Vital Signs Recent Vital Signs: Last Vital Signs Temp 98.6 F 06/01/17 15:48 Pulse 68 06/01/17 18:07 Resp 20 06/01/17 15:48 BP 178/71 H 06/01/17 18:07 Pulse Ox 96 06/01/17 15:48 - Labs Result Diagrams: 06/01/17 05:30 06/01/17 05:30 Labs: Laboratory Results - last 24 hr 06/01/17 06/01/17 06/01/17 05:30 05:30 05:30 WBC 3.9 L RBC 3.63 L Hgb 11.5 L Hct 33.7 L MCV 92.9 MCH 31.7 H MCHC 34.1 RDW 13.1 Plt Count 150 Sodium 135 Potassium 4.5 Chloride 99 Carbon Dioxide 27 Anion Gap 14 BUN 9 Creatinine 0.7 Est GFR ( Amer) > 60 Est GFR (Non-Af Amer) > 60 Random Glucose 87 Calcium 8.0 L Total Bilirubin 0.3 AST 31 ALT 36 Alkaline Phosphatase 46 Total Protein 5.6 L Albumin 3.1 L D Globulin 2.4 Albumin/Globulin Ratio 1.3 TSH 3rd Generation 3.74 Digoxin < 0.4 L Assessment & Plan (1) Abdominal pain Assessment and Plan: ct abd pelvis consistent with diverticulitis, no diverticulosis noted Diet as tolerated labs Bentyl PRN Status: Acute Priority: High (2) Dizziness Assessment and Plan: pt with known hx of vertigo improved with meclizine Status: Acute (3) Hyponatremia Assessment and Plan: Na124 secondary to vomiting Improved to 135 with IVF resolved. Status: Acute - Assessment and Plan (Free Text) Assessment: Plan to monitor 24 hours and dc in am if electrolytes remain stable pt remains asymptomatic.
--- NOTE | 2017-06-01 22:30 | CP.PCM.PN ---
Subjective - Date & Time of Evaluation Date of Evaluation: 06/01/17 Time of Evaluation: 09:00 - Subjective Subjective: Patient feels a lot better although still with a lot of dizziness Has no vomiting Has no fever. Objective - Vital Signs/Intake and Output Vital Signs (last 24 hours): Temp Pulse Resp BP Pulse Ox 98.6 F 68 20 178/71 H 96 06/01/17 15:48 06/01/17 18:07 06/01/17 15:48 06/01/17 18:07 06/01/17 15:48 - Medications Medications: Current Medications Acetaminophen (Tylenol 325mg Tab) 650 mg PO Q4 PRN PRN Reason: Headache Digoxin (Digoxin) 0.125 mg PO DAILY REPLACED BY [facility] Last Admin: 06/01/17 08:49 Dose: 0.125 mg Lisinopril (Zestril) 10 mg PO BID REPLACED BY [facility] Last Admin: 06/01/17 17:04 Dose: 10 mg Meclizine HCl (Antivert) 12.5 mg PO TID REPLACED BY [facility] Last Admin: 06/01/17 17:04 Dose: 12.5 mg Ondansetron HCl (Zofran Inj) 4 mg IVP Q6 PRN PRN Reason: Nausea/Vomiting - Labs Labs: 06/01/17 05:30 06/01/17 05:30 PT 10.8 Seconds (9.8-13.1) 05/30/17 19:51 INR 1.0 (0.9-1.2) 05/30/17 19:51 APTT 29.1 Seconds (25.6-37.1) 05/30/17 19:51
[2017-06-02] MEDS: Digoxin 125 mcg (0.125 mg) Tab PO SCH (08:25)
[2017-06-02 08:26] VITALS: PULSE 63
[2017-06-02 08:27] VITALS: BP 166/78; PULSE 89; RESP 18; TEMP 98
== END 2017-06-02 14:30 | disposition home or self-care (01) | DRG 392 ==
LOC: H.ER 18:35 → H.ERHOLD 05-31 00:11 → H.MEDSURG1 05-31 01:50 → OBSVTOIN 06-01 10:10
PROVIDERS: ADMIT Family Medicine; ATTEND Family Medicine
DX: K57.92 Diverticulitis of intestine, part unspecified, without perforation or abscess without bleeding (principal); E87.1 Hypo-osmolality and hyponatremia; G30.9 Alzheimer's disease, unspecified; F02.80 Dementia in other diseases classified elsewhere, unspecified severity, without behavioral disturbance, psychotic disturbance, mood disturbance, and anxiety; E03.9 Hypothyroidism, unspecified; M19.90 Unspecified osteoarthritis, unspecified site; E78.00 Pure hypercholesterolemia, unspecified; I10 Essential (primary) hypertension; Z87.891 Personal history of nicotine dependence; R42 Dizziness and giddiness